=== PATIENT | female | born 1990 | race Caucasian/White ===

== ENCOUNTER 2020-07-07 16:57 | Emergency (ER) | payer OTHER, MEDICAID, SELFPAY ==
[2020-07-07 17:29] VITALS: BP 148/82; PULSE 58; RESP 22; TEMP 36.3; O2SAT 98; BMI 25.0
--- NOTE | 2020-07-07 18:13 | ED.PSYCH ---
HPI - Psych General Chief Complaint: Psychiatric Symptoms Stated Complaint: panic attack/ vomitting Time Seen by Provider: 07/07/20 17:59 Source: patient Mode of arrival: Family Vehicle Limitations: no limitations History of Present Illness HPI Narrative: Patient is a 30-year-old female. Does have a history of depression and anxiety. Is on medications for these. His medications are managed by her primary provider. She is here for anxiety and panic attack. She states that the symptoms started yesterday morning continues throughout the day yesterday. She does have Klonopin at home which she took without any improvement. Symptoms again continued throughout today. She does not know what potentially triggered the event. States she is very nauseous. She states she feels dehydrated. Describes chest pain Related Data Previous Rx's Medication Instructions Recorded lorazepam [Ativan] 0.5 mg PO DAILY PRN #10 tab 07/07/20 lorazepam [Ativan] 0.5 mg PO DAILY PRN #7 tab 07/07/20 Allergies Allergy/AdvReac Type Severity Reaction Status Date / Time No Known Drug Allergies Allergy Verified 07/07/20 17:29 Review of Systems Constitutional Constitutional: Denies fever(s), Denies headache(s) and Reports weakness ENT Ears, Nose, Mouth, and Throat: Denies headache(s) Cardiovascular Cardiovascular: Reports chest pain and Denies dyspnea Respiratory Respiratory: Denies dyspnea Gastrointestinal Gastrointestinal: Denies change in bowel habits and Reports nausea Genitourinary Genitourinary: Denies dysuria Genitourinary: Denies dysuria Musculoskeletal Musculoskeletal: Denies arthralgias and Denies myalgias Integumentary/Breasts Skin/Breast: Denies lesions and Denies rash Neurologic Neurologic: Denies behavioral changes, Denies headache(s) and Reports weakness Psychiatric Psychiatric: Reports anxiety, Denies behavioral changes and Reports depression Hematologic/Lymphatic Hematologic/Lymphatic: Denies easy bleeding and Denies easy bruising Allergic/Immunologic Allergic/Immunologic: Denies urticaria Patient History Medical History Anxiety Depression Social History Smoking Status: Never smoker Smoking Status: Never smoker alcohol intake frequency: 3 or more drinks per day Alcohol type: beer Substance Use Type: marijuana Exam Initial Vital Signs Initial Vital Signs: Vital Signs Temperature 97.3 F L 01/01/21 17:29 Pulse Rate 58 L 07/07/20 17:29 Respiratory Rate 22 07/07/20 17:29 Blood Pressure 148/82 H 07/07/20 17:29 Pulse Oximetry 98 07/07/20 17:29 Const General: cooperative Limitations: mental status not altered HENMT Head: normal to inspection and normocephalic Resp Effort & Inspection: normal respiratory effort Cardio Rate: regular rate Skin Lesions: no lesions Rashes: no rashes Neuro General: patient alert, patient awake and patient oriented x3 Cognition: normal cognition Speech: speech normal Extrem General: normal to inspection Psych Appearance: grossly normal and well kempt Course Orders Ordered: ED Orders 07/07/20 17:36 EKG-12 Lead Stat Discontinued Medications Sodium Chloride (Normal Saline 0.9%) 1,000 mls @ 1,000 mls/hr IV BOLUS ONE Stop: 07/07/20 20:26 Last Infusion: 07/07/20 20:41 Dose: 0 mls/hr Documented by: Admin: 07/07/20 19:49 Dose: 1,000 mls/hr Documented by: NED Lorazepam (Lorazepam 0.5 Mg Tablet) 1 mg PO NOW ONE Stop: 07/07/20 18:14 Last Admin: 07/07/20 18:29 Dose: 1 mg Documented by: NED Ondansetron HCl (Ondansetron 4 Mg Odt) 4 mg PO NOW ONE Stop: 07/07/20 18:14 Last Admin: 07/07/20 18:29 Dose: 4 mg Documented by: NED Ondansetron HCl (Ondansetron 4 Mg Odt Prepack) 1 bottle MISC SEEINSTR ONE Stop: 07/07/20 19:28 Last Admin: 07/07/20 20:27 Dose: 1 bottle Documented by: NED Vital Signs Vital signs: Vital Signs - 8 hr 07/07/20 17:29 07/07/20 20:11 07/07/20 20:30 Temperature 97.3 F L Pulse Rate 58 L 69 68 Respiratory Rate 22 Blood Pressure 148/82 H Pulse Oximetry 98 100 100 MDM - Psych ECG Data Attestation: I personally reviewed and interpreted this ECG as follows: Prior ECG tracings: not available for review Interpretation: Sinus bradycardia Ventricular rate of 58 Normal axis Normal QRS Normal QTC No ST T wave changes MDM Narrative Medical decision making narrative: Patient not clinically dehydrated. Is not tachycardic, not hypotensive, is tolerating oral intake. She did receive Ativan which he states did improve her symptoms somewhat. Patient states she is still feels like that she needs an IV. I explained her that clinically she does not need an IV and I do not necessarily think 1 is indicated however if putting in an IV and giving her fluids makes her feel better than I would oblige. She did receive IV fluids and was discharged home afterwards. She was instructed to contact her primary doctor for further evaluation and treatment. She is also given return precautions. Discharge Plan Departure Patient Disposition: Home Clinical Impression: Acute anxiety Instructions: DI for Panic Disorder Activity Restrictions/Additional Instructions: Recommend that you continue all of your medications as directed. Return to the emergency department for any new or worsening symptoms. Contact your primary provider for a follow-up. Prescriptions: New lorazepam [Ativan] 0.5 mg tablet 0.5 mg PO DAILY PRN (Reason: anxiety) Qty: 7 RF: 0 lorazepam [Ativan] 0.5 mg tablet 0.5 mg PO DAILY PRN (Reason: anxiety) Qty: 10 RF: 0
[2020-07-07] MEDS: LORazepam 0.5 MG TABLET 1 MG PO (18:29)
[2020-07-07] MEDS: ONDANSETRON 4 MG ODT PO (18:29)
[2020-07-07] MEDS: SODIUM CHLORIDE 0.9% 1,000 ML 1000 ML IV (19:49)
[2020-07-07 20:11] VITALS: PULSE 69; O2SAT 100
[2020-07-07] MEDS: ONDANSETRON 4 MG ODT PREPACK 1 BOTTLE MISC (20:27)
[2020-07-07 20:30] VITALS: PULSE 68; O2SAT 100
== END 2020-07-07 21:01 | disposition home or self-care (01) ==
PROVIDERS: Emergency Provider Emergency Medicine
DX: R00.1 Bradycardia, unspecified (principal); F41.9 Anxiety disorder, unspecified; R07.9 Chest pain, unspecified; F32.9 Major depressive disorder, single episode, unspecified
CPT/HCPCS: 93005; 96360; 99283; 99284